=== PATIENT | female | born 1980 | race Caucasian/White ===

== ENCOUNTER 2018-12-05 20:23 | Observation (INO) | payer OTHER ==
[~2018-12-05] VITALS: Ht 157.5 cm; Wt 85.3 kg
[~2018-12-05 20:23] MED LIST: ADDERALL 20 MG20 MG PO; TYLENOL PM; XANAX 0.25 MG0.25 MG PO; ZOFRAN ODT4 MG PO
[2018-12-05 20:25] VITALS: BP 155/83
[2018-12-05] MEDS ORDERED: BIRTH CONTROL (20:31)
[2018-12-05 20:48] LABS: ABSOLUTE BASOPHILS 0.1 thou/uL (0.0-0.2); ABSOLUTE EOSINOPHILS 0.1 thou/uL (0.0-0.7); ABSOLUTE LYMPHOCYTES 2.4 thou/uL (0.8-5.3); ABSOLUTE MONOCYTES 0.6 thou/uL (0.0-1.2); ABSOLUTE NEUTROPHILS 8.4 thou/uL (1.6-8.1); BASOPHILS 1.2 %; HEMATOCRIT 42.6 % (37.0-47.0); HEMOGLOBIN 14.3 gm/dL (12.0-15.0); LYMPHOCYTES 20.4 %; MCH 30.3 pg (26.0-34.0); MCHC 33.6 g/dL (28.0-37.0); MPV 8.2 fl. (7.2-11.1); NUCLEATED RBCS 0 /100WBC; PLATELET COUNT* 319 thou/uL (150-400); POLYS 72.4 %; RBC 4.73 mil/uL (4.20-5.00); RDW-CV 13.2 % (10.5-14.5); WBC 11.6 thou/uL (4.0-11.0)
[2018-12-05 21:03] LABS: ANION GAP 10 mmol/L (7-16); BUN 9 mg/dL (7-18); CALCIUM 8.9 mg/dL (8.5-10.1); CHLORIDE 101 mmol/L (98-107); CO2 28 mmol/L (21-32); CREATININE 0.7 mg/dL (0.6-1.3); GLUCOSE 145 mg/dL (70-99); POTASSIUM 3.7 mmol/L (3.5-5.1); SODIUM 139 mmol/L (136-145); TROPONIN-I LEVEL <0.06 ng/mL (<0.06)
[2018-12-05 21:05] LABS: ALBUMIN 3.9 g/dL (3.4-5.0); ALKALINE PHOSPHATASE 76 U/L (46-116); LIPASE 101 U/L (73-393); MAGNESIUM 2.1 mg/dL (1.8-2.4); NT-PRO BRAIN NAT PEPTIDE 12 pg/mL (<300); SGOT 13 U/L (15-37); SGPT 24 U/L (30-65); TOTAL BILIRUBIN 0.5 mg/dL (<0.1-1.0)
[2018-12-05 22:50] VITALS: BP 114/62; BP 117/71
[2018-12-06 04:00] VITALS: BP 133/61
[2018-12-06 08:00] VITALS: BP 135/77
[2018-12-06] MEDS ORDERED: PANTOPRAZOLE SO40 M1 PO (11:18)
[2018-12-06 11:59] VITALS: BP 132/66
[2018-12-06 14:46] VITALS: BP 132/66
--- NOTE | 2018-12-07 12:03 | EKG ---
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
--- NOTE | 2018-12-07 12:13 | CON ---
[address] [address] CONSULTATION Name: VIOLETA DIAZ Room: [address] IN M.R.#: [id number] Admission: 12/05/18 Attend Phys: Anila Jones Discharge: 12/06/18 Date of : 82 Report #: [id number] THIS REPORT FOR: //name// CC: YUNIER physician/PCP Genesis Stallings DATE OF SERVICE: 12/06/2018 INDICATION: Chest pain. HISTORY OF PRESENT ILLNESS: The patient is a very pleasant 38-year-old white female with no prior cardiac history. Cardiac risk factors include borderline hypertension and family history of premature atherosclerotic coronary artery disease. She does not have the diagnosis of hypertension or hyperlipidemia. She is not a smoker. Yesterday, while shopping at the grocery store, she had a midsternal chest pressure, some pinprick type pains associated with hot and cold feeling with mild diaphoresis. The symptoms persisted for several hours, especially the chest pressure and tightness. The patient presented to the Emergency Room for further evaluation. EKG at that time showed normal sinus rhythm without acute ST or T-wave abnormality. The patient's initial troponin was unremarkable. The patient was admitted overnight to the hospital. Her troponins remained unremarkable. At the time of my interview, she is pain free. The chest pressure resolved throughout the night. She did have some relief with sublingual nitroglycerin in the Emergency Room. She reports episode of indigestion approximately a week ago, but not recently. PAST MEDICAL HISTORY: 1. Borderline diabetes. 2. x 2. 3. 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 ALLERGIES: LATEX AND INTOLERANCE TO PERCOCET. CURRENT MEDICATIONS: Adderall 20 mg p.o. b.i.d. and control. FAMILY HISTORY: The patient's father had stents placed at the age of 52. The patient's mother has heart disease on her side of the family, but not personally. No other significant family history. 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 She does not smoke. She drinks alcohol rarely. REVIEW OF SYSTEMS: A 14-point review of systems is positive for chest discomfort as outlined above. Borderline diabetes. [place] 14[place] [address] CONSULTATION Name: VIOLETA DIAZ Room: [address]#: [id number] Admission: 12/05/18 Attend Phys: Anila Jones Discharge: 12/06/18 Date of : 82 Report #: [id number] systems otherwise unremarkable. PHYSICAL EXAMINATION: VITAL SIGNS: Stable. Blood pressure 135/77, pulse is 77 and regular. GENERAL: This is a pleasant, healthy appearing young woman in no distress. Mood and affect appropriate. HEENT: Extraocular muscles intact. Mucous membranes are moist. NECK: Shows no jugular venous distension. There are no carotid bruits. CHEST: Reveals clear lung ross without wheezes or rales. CARDIOVASCULAR: Reveals a regular rhythm without gallop or murmur. ABDOMEN: Reveals normal bowel sounds. The abdomen is soft, nontender. EXTREMITIES: Shows no edema. Peripheral pulses are 2+ and easily palpable. SKIN: Warm and dry. LABORATORY DATA: A 12-lead EKG shows sinus rhythm without acute ST or T-wave abnormality. Labs are reviewed. Troponins are unremarkable. IMPRESSION AND RECOMMENDATIONS: 1. Chest pain. The patient has ruled out for myocardial infarction. She is not having any symptoms to suggest unstable angina. I believe she could be discharged safely to follow up with outpatient stress testing. 2. Borderline diabetes. The patient was mildly hyperglycemic here in the hospital. Recommend outpatient followup with primary physician. <ELECTRONICALLY SIGNED> By: Billy Gross MD, FACC 12/07/18 1213 1205 [id number] Gross MD, FACC /nt
== END 2018-12-06 15:30 | disposition home or self-care (01) ==
LOC: M.ERS 20:23 → M.2W 21:51 → M.TBA-ER 21:51 → M.2W 21:51
PROVIDERS: Emergency Medicine Emergency Medical Services; ADMIT Internal Medicine
DX: R07.89 Other chest pain (principal); E11.9 Type 2 diabetes mellitus without complications; Z88.8 Allergy status to other drugs, medicaments and biological substances; Z88.6 Allergy status to analgesic agent; Z91.040 Latex allergy status; Z82.49 Family history of ischemic heart disease and other diseases of the circulatory system; Z79.899 Other long term (current) drug therapy; Z98.890 Other specified postprocedural states

== ENCOUNTER → 2018-12-10 | Outpatient (CLI) | payer OTHER ==
[~2018-12-10] MED LIST changes: +BIRTH CONTROL; +PANTOPRAZOLE SO40 M1 PO
--- NOTE | 2018-12-10 13:38 | EXE ---
[place] [address] STRESS ECHOCARDIOGRAM Name: VIOLETA DIAZ Room: [facility]#: [id number] Admission: 12/10/18 Attend Phys: Billy Gross, Discharge: Date of : 82 Date of Service: 12/10/18 1338 Report #: [id number] THIS REPORT FOR: //name// APPROVED REPORT Study performed: 12/10/2018 11:22:11 Exam: Stress Echocardiogram Indication: Chest pain Patient Location: Out-Patient Stress Nurse: Dot Granger RN Supervising Physician: Vlad Liu MD Ht: 5 ft 2 in HR: 78 bpm BP: 109/67 mmHg Medical History Cardiac Risk Factors: FHX of CAD Procedure The patient underwent an Exercise Stress Test using the Giacomo Protocol. Blood pressure, heart rate, and EKG were monitored. An Echocardiogram was performed by wildlife technician in four stages in quad fashion. At peak stress, four selected images were obtained and placed side by side with resting images for comparison. Stress Test Details Stress Test: Exercise stress testing was performed using a Giacomo protocol. HR Resting HR: 78 bpm Max Heart Rate (APMHR): 183 bpm Max HR Achieved: 174 bpm Target HR (85% APMHR): 155 bpm % of APMHR: 95 Recovery HR: 96 bpm HR response to stress: Normal HR response to stress BP Resting BP: 109/67 mmHg Max BP: 171/84 mmHg Recovery BP: 128/89 mmHg BP response to stress: Normal blood pressure response to stress. ECG Resting ECG: Sinus Rhythm Stress ECG: Sinus Rhythm, [place] [address] STRESS ECHOCARDIOGRAM Name: VIOLETA DIAZ Room: [facility]#: [id number] Admission: 12/10/18 Attend Phys: Billy Gross, Discharge: Date of : 82 Date of Service: 12/10/18 1338 Report #: [id number] ST Change: Upsloping ST depression Maximum ST Deviation: 1 mm Arrhythmia: None Recovery ECG: Sinus Rhythm, nonspecific ST-T abnormalities Recovery ST Change: Horizontal ST depression Recovery ST Deviation: 0.5 mm Recovery Arrhythmia: None Clinical Reason for Termination: Maximal effort, pt request Exercise duration: 9 min 55 sec Highest Stage Achieved: Stage 4: 4.2 mph at 16% grade. Exercise capacity: 10.28 METs Pre-Stress Echo The resting Echocardiogram showed normal left ventricular contractility with an estimated Ejection Fraction of about 60-65%. Trivial aortic insuff. Post-Stress Echo The stress Echocardiogram showed normal left ventricular contractility with an estimated Ejection Fraction of about >70%. Conclusion Clinical Response: Non-ischemic Exercise Capacity: Average Stress ECG Response: Equivocal Stress Echo Images: Non-ischemic low risk stress echo for future cardiac events Other Information Study Quality: Good <Conclusion> low risk stress echo for future cardiac events <ELECTRONICALLY SIGNED> By: Vlad Liu MD, [facility] 12/10/18 1338 37 Vlad Liu MD, FAC /INF
== END ==
LOC: M.CRD 10:55
DX: R07.9 Chest pain, unspecified (principal); Z82.49 Family history of ischemic heart disease and other diseases of the circulatory system